=== PATIENT | female | born 1970 | race Caucasian/White ===

== ENCOUNTER 2021-08-14 16:08 | Outpatient (CLI) | payer OTHER | END 2021-08-14 23:00 | disposition home or self-care (01) | LOC: EDBD 16:08 → LAB 16:08 | PROVIDERS: ATTEND Obstetrics & Gynecology | DX: U07.1 COVID-19 (principal) ==

== ENCOUNTER 2021-08-15 11:42 | Outpatient (CLI) | payer OTHER | END 2021-08-15 11:46 | disposition home or self-care (01) | LOC: LAB 11:42 | PROVIDERS: ATTEND Obstetrics & Gynecology | DX: U07.1 COVID-19 (principal); Z03.818 Encounter for observation for suspected exposure to other biological agents ruled out ==

== ENCOUNTER 2021-12-03 08:00 | Outpatient (CLI) | payer OTHER | END 2021-12-03 08:05 | disposition home or self-care (01) | LOC: PPH VACUNA 08:00 | PROVIDERS: ATTEND Emergency Medicine Pediatric Emergency Medicine | DX: Z23 Encounter for immunization (principal) ==

== ENCOUNTER 2021-12-03 15:15 | Outpatient (CLI) | payer OTHER | END 2021-12-03 15:20 | disposition home or self-care (01) | LOC: PPH VACUNA 15:15 | PROVIDERS: ATTEND Emergency Medicine Pediatric Emergency Medicine | DX: Z23 Encounter for immunization (principal) ==

== ENCOUNTER 2021-12-30 14:30 | Outpatient (CLI) | payer OTHER | END 2021-12-30 14:31 | disposition home or self-care (01) | LOC: LAB 14:30 | DX: J06.9 Acute upper respiratory infection, unspecified (principal); T50.Z95A Adverse effect of other vaccines and biological substances, initial encounter ==

== ENCOUNTER 2022-03-11 14:20 | Outpatient (CLI) | payer OTHER | END 2022-03-11 14:24 | disposition home or self-care (01) | LOC: LAB 14:20 | DX: J11.1 Influenza due to unidentified influenza virus with other respiratory manifestations (principal); Z20.828 Contact with and (suspected) exposure to other viral communicable diseases; R50.9 Fever, unspecified; R05.9 Cough, unspecified ==

== ENCOUNTER 2023-01-07 16:14 | Emergency (ER) | payer OTHER ==
[~2023-01-07] VITALS: Ht 157.5 cm; Wt 137.0 kg
[2023-01-07] MEDS ORDERED: CARDIZEM120 MG PO (20:30)
[2023-01-07] MEDS ORDERED: ATENOLOL25 MG PO (20:31)
[2023-01-07] MEDS ORDERED: DIHYDROCODEIN-1 EACH PO (20:33)
[2023-01-07] MEDS ORDERED: NORFLEX100MG PO (20:44)
[2023-01-07] MEDS ORDERED: DICLOFENAC SODI75 MG PO (20:44)
== END 2023-01-07 21:02 | disposition home or self-care (01) ==
LOC: ER → EDBD 16:14 → ER 16:14
DX: M79.651 Pain in right thigh (principal); Z88.0 Allergy status to penicillin; Z87.09 Personal history of other diseases of the respiratory system; I10 Essential (primary) hypertension

== ENCOUNTER 2023-02-09 08:13 | Emergency (ER) | payer OTHER ==
[~2023-02-09] VITALS: Ht 157.5 cm; Wt 134.3 kg
[~2023-02-09 08:13] MED LIST: ATENOLOL25 MG PO; CARDIZEM120 MG PO; DICLOFENAC SODI75 MG PO; DIHYDROCODEIN-1 EACH PO; NORFLEX100MG PO
[2023-02-09 09:45] LABS: HEMOGLOBIN 13.4 g/dL (12.0-15.00); MEAN CELL VOLUME 87.1 fL (80.00-100.00); MEAN CORPUSCULAR HEMOGLOBIN 28.5 pg (27.00-32.0); MEAN CORPUSCULAR HGB CONC 32.8 g/dl (32.0-36.0); PLATELET COUNT 256 K/uL (150-450); RED BLOOD COUNT 4.71 M/uL (4.00-6.00); RED CELL DISTRIBUTION WIDTH 13.6 % (11.5-14.5)
[2023-02-09] MEDS ORDERED: ZITHROMAX200 MG PO (10:27)
[2023-02-09] MEDS ORDERED: FLONASE ALLERG9.9 ML NASAL (10:27)
== END 2023-02-09 11:34 | disposition home or self-care (01) ==
LOC: ER 08:13
PROVIDERS: General Practice
DX: J02.9 Acute pharyngitis, unspecified (principal); Z20.822 Contact with and (suspected) exposure to COVID-19; I10 Essential (primary) hypertension; Z88.0 Allergy status to penicillin; Z91.013 Allergy to seafood

== ENCOUNTER → 2023-02-09 11:44 | Outpatient (CLI) | payer OTHER ==
[~2023-02-09 11:44] MED LIST changes: +FLONASE ALLERG9.9 ML NASAL; +ZITHROMAX200 MG PO
[2023-02-09 12:30] LABS: HEMATOCRIT 43.2 % (36.0-45.00); HEMOGLOBIN 14.1 g/dL (12.0-15.00); MEAN CELL VOLUME 86.9 fL (80.00-100.00); MEAN CORPUSCULAR HEMOGLOBIN 28.5 pg (27.00-32.0); MEAN CORPUSCULAR HGB CONC 32.7 g/dl (32.0-36.0); PLATELET COUNT 260 K/uL (150-450); RED BLOOD COUNT 4.97 M/uL (4.00-6.00); RED CELL DISTRIBUTION WIDTH 13.7 % (11.5-14.5)
[2023-02-09 13:10] LABS: ALBUMIN 3.2 gm/dL (3.4-5.0); BILIRUBIN TOTAL 0.96 mg/dL (0.3-1.2); CALCIUM 8.5 mg/dL (8.5-10.1); CHOL HDL RATIO 3.5 (0-5.0); CREATININE SERUM 0.68 mg/dL (0.55-1.02); GFR 90.51; GLOBULINA 3.8 G/DL (2.4-3.5); POTASSIUM 3.95 mEq/L (3.5-5.1)
== END | disposition home or self-care (01) ==
LOC: LAB 11:44
PROVIDERS: ATTEND General Practice
DX: I11.9 Hypertensive heart disease without heart failure (principal); Z13.220 Encounter for screening for lipoid disorders; A49.3 Mycoplasma infection, unspecified site

== ENCOUNTER → 2023-05-05 07:46 | Outpatient (CLI) | payer OTHER ==
[2023-05-05 08:23] LABS: PH,URINE 5.5 (5.0-8.0); URINE APPEARANCE Clear; URINE BILIRRUBIN Negative (NEGATIVE); URINE BLOOD Trace; URINE COLOR Yellow; URINE GLUCOSE Negative (NEGATIVE); URINE LEUKOCYTE Negative; URINE NITRATE Negative; URINE PROTEIN Negative (NEGATIVE)
[2023-05-05 08:25] LABS: HEMATOCRIT 40.5 % (36.0-45.00); HEMOGLOBIN 13.3 g/dL (12.0-15.00); MEAN CELL VOLUME 88.7 fL (80.00-100.00); MEAN CORPUSCULAR HEMOGLOBIN 29.1 pg (27.00-32.0); MEAN CORPUSCULAR HGB CONC 32.8 g/dl (32.0-36.0); PLATELET COUNT 269 K/uL (150-450); RED BLOOD COUNT 4.57 M/uL (4.00-6.00)
[2023-05-05 08:27] LABS: URINE BACTERIA 438.4 uL (0.0-1933); URINE EPITHELIAL CELLS 33.3 uL (0.0-38.8); URINE WBC 12.3 uL (0.0-23.2)
[2023-05-05 08:33] LABS: ERYTHROCYTE SEDIMENTATION RATE 62 mm/hr
[2023-05-05 09:13] LABS: ALBUMIN 3.3 gm/dL (3.4-5.0); BILIRUBIN TOTAL 0.95 mg/dL (0.3-1.2); CALCIUM 8.6 mg/dL (8.5-10.1); CREATININE SERUM 0.66 mg/dL (0.55-1.02); FREE TRIODOTIRONINE 2.42 pg/ml (2.18-3.98); GFR 93.68; GLOBULINA 3.2 G/DL (2.4-3.5); POTASSIUM 4.38 mEq/L (3.5-5.1); T4 TOTAL 9.14 UG/DL (4.8-13.9); TOTAL PROTEIN 6.5 gm/dL (6.4-8.2); TSH 2.46 uIU/mL (0.358-3.74)
[2023-05-05 09:15] LABS: C-REACTIVE PROTEIN 3.17 MG/DL (0.00-0.29)
[2023-05-05 15:37] LABS: ob POSITIVE (NEGATIVE)
== END | disposition home or self-care (01) ==
LOC: LAB 07:46
PROVIDERS: ATTEND Internal Medicine
DX: I11.9 Hypertensive heart disease without heart failure (principal); J45.909 Unspecified asthma, uncomplicated; Z13.220 Encounter for screening for lipoid disorders; Z13.29 Encounter for screening for other suspected endocrine disorder; E55.9 Vitamin D deficiency, unspecified; Z12.11 Encounter for screening for malignant neoplasm of colon

== ENCOUNTER 2023-05-13 17:21 | Outpatient (CLI) | payer OTHER ==
[2023-05-13 21:22] LABS: HEMATOCRIT 40.5 % (36.0-45.00); HEMOGLOBIN 13.3 g/dL (12.0-15.00); MEAN CELL VOLUME 87.7 fL (80.00-100.00); MEAN CORPUSCULAR HEMOGLOBIN 28.9 pg (27.00-32.0); MEAN CORPUSCULAR HGB CONC 32.9 g/dl (32.0-36.0); PLATELET COUNT 277 K/uL (150-450); RED BLOOD COUNT 4.61 M/uL (4.00-6.00); RED CELL DISTRIBUTION WIDTH 14.1 % (11.5-14.5)
== END 2023-05-13 23:00 | disposition home or self-care (01) ==
LOC: LAB 17:21
DX: D64.9 Anemia, unspecified (principal)

== ENCOUNTER 2023-05-25 17:32 | Outpatient (CLI) | payer OTHER ==
[2023-05-25 21:09] LABS: MYCOPLASMA PNEUMONIAE IGM NON REACTIVE (NO REACTIVE)
== END 2023-05-25 17:54 | disposition home or self-care (01) ==
LOC: LAB 17:32
DX: J06.9 Acute upper respiratory infection, unspecified (principal); Z03.818 Encounter for observation for suspected exposure to other biological agents ruled out

== ENCOUNTER 2024-01-07 04:00 | Outpatient (CLI) | payer OTHER | END 2024-01-07 04:15 | disposition home or self-care (01) | LOC: PPH VACUNA 04:00 | PROVIDERS: ATTEND Emergency Medicine Pediatric Emergency Medicine | DX: Z23 Encounter for immunization (principal) ==

== ENCOUNTER 2024-04-13 13:45 | Outpatient (CLI) | payer OTHER ==
[2024-04-13 14:14] LABS: HEMATOCRIT 41.3 % (36.0-45.00); HEMOGLOBIN 13.3 g/dL (12.0-15.00); MEAN CELL VOLUME 88.8 fL (80.00-100.00); MEAN CORPUSCULAR HEMOGLOBIN 28.6 pg (27.00-32.0); MEAN CORPUSCULAR HGB CONC 32.2 g/dl (32.0-36.0); PLATELET COUNT 275 K/uL (150-450); RED BLOOD COUNT 4.65 M/uL (4.00-6.00)
[2024-04-13 14:47] LABS: MYCOPLASMA PNEUMONIAE IGM NON REACTIVE (NO REACTIVE)
== END 2024-04-13 13:46 | disposition home or self-care (01) ==
LOC: LAB 13:45
PROVIDERS: ATTEND Internal Medicine
DX: J11.1 Influenza due to unidentified influenza virus with other respiratory manifestations (principal); J06.9 Acute upper respiratory infection, unspecified; U07.1 COVID-19

== ENCOUNTER → 2024-05-04 08:05 | Outpatient (CLI) | payer OTHER ==
[2024-05-04 08:42] LABS: PH,URINE 5.5 (5.0-8.0); URINE APPEARANCE Clear; URINE BILIRRUBIN Negative (NEGATIVE); URINE BLOOD Negative; URINE COLOR Yellow; URINE GLUCOSE Negative (NEGATIVE); URINE KETONE Negative (NEGATIVE); URINE LEUKOCYTE Negative; URINE NITRATE Negative; URINE PROTEIN Negative (NEGATIVE); URINE UROBILINOGEN 0.2 E.U./dl
[2024-05-04 08:42] LABS: HEMATOCRIT 40.7 % (36.0-45.00); HEMOGLOBIN 13.2 g/dL (12.0-15.00); MEAN CELL VOLUME 88.2 fL (80.00-100.00); MEAN CORPUSCULAR HEMOGLOBIN 28.6 pg (27.00-32.0); MEAN CORPUSCULAR HGB CONC 32.5 g/dl (32.0-36.0); PLATELET COUNT 258 K/uL (150-450); RED BLOOD COUNT 4.62 M/uL (4.00-6.00)
[2024-05-04 08:45] LABS: URINE BACTERIA 303.3 uL (0.0-1933); URINE EPITHELIAL CELLS 21.8 uL (0.0-38.8); URINE WBC 8.2 uL (0.0-23.2)
[2024-05-04 08:46] LABS: ERYTHROCYTE SEDIMENTATION RATE 93 mm/hr
[2024-05-04 09:28] LABS: URINE RBC 0.2 uL (0.0-20.8)
[2024-05-04 10:02] LABS: ALBUMIN 3.1 gm/dL (3.4-5.0); BILIRUBIN TOTAL 0.81 mg/dL (0.3-1.2); CALCIUM 8.4 mg/dL (8.5-10.1); CHOL HDL RATIO 3.1 (0-5.0); CREATININE SERUM 0.58 mg/dL (0.55-1.02); FREE TRIODOTIRONINE 2.36 pg/ml (2.18-3.98); GFR 108.33; GLOBULINA 3.4 G/DL (2.4-3.5); POTASSIUM 4.5 mEq/L (3.5-5.1); T4 TOTAL 8.42 UG/DL (4.8-13.9); TOTAL PROTEIN 6.5 gm/dL (6.4-8.2); TSH 2.12 uIU/mL (0.358-3.74)
[2024-05-04 10:06] LABS: C-REACTIVE PROTEIN 3.25 MG/DL (0.00-0.29)
== END | disposition home or self-care (01) ==
LOC: LAB 08:05
PROVIDERS: ATTEND Internal Medicine
DX: I11.9 Hypertensive heart disease without heart failure (principal); Z13.220 Encounter for screening for lipoid disorders; E55.9 Vitamin D deficiency, unspecified; Z13.1 Encounter for screening for diabetes mellitus; Z12.10 Encounter for screening for malignant neoplasm of intestinal tract, unspecified; Z13.29 Encounter for screening for other suspected endocrine disorder

== ENCOUNTER → 2024-07-19 14:05 | Outpatient (CLI) | payer OTHER ==
[2024-07-19 15:22] LABS: HEMATOCRIT 38.8 % (36.0-45.00); MEAN CELL VOLUME 86.3 fL (80.00-100.00); MEAN CORPUSCULAR HEMOGLOBIN 28.8 pg (27.00-32.0); MEAN CORPUSCULAR HGB CONC 33.4 g/dl (32.0-36.0); PLATELET COUNT 276 K/uL (150-450); RED BLOOD COUNT 4.49 M/uL (4.00-6.00); RED CELL DISTRIBUTION WIDTH 14.4 % (11.5-14.5)
[2024-07-19 15:35] LABS: ERYTHROCYTE SEDIMENTATION RATE 106 mm/hr
[2024-07-19 15:52] LABS: ALBUMIN 3.1 gm/dL (3.4-5.0); BILIRUBIN TOTAL 0.58 mg/dL (0.3-1.2); CALCIUM 8.3 mg/dL (8.5-10.1); CHOL HDL RATIO 3.1 (0-5.0); CREATININE SERUM 0.79 mg/dL (0.55-1.02); GFR 75.56; GLOBULINA 3.5 G/DL (2.4-3.5); POTASSIUM 4.29 mEq/L (3.5-5.1); TOTAL PROTEIN 6.6 gm/dL (6.4-8.2)
[2024-07-19 15:57] LABS: C-REACTIVE PROTEIN 3.6 MG/DL (0.00-0.29)
[2024-07-19 16:01] LABS: FREE TRIODOTIRONINE 2.19 pg/ml (2.18-3.98); T4 TOTAL 7.7 UG/DL (4.8-13.9); TSH 1.66 uIU/mL (0.358-3.74)
[2024-07-19 19:27] LABS: PH,URINE 5.5 (5.0-8.0); URINE APPEARANCE Clear; URINE BILIRRUBIN Negative (NEGATIVE); URINE BLOOD Negative; URINE COLOR Yellow; URINE GLUCOSE Negative (NEGATIVE); URINE KETONE Negative (NEGATIVE); URINE LEUKOCYTE Negative; URINE NITRATE Negative; URINE PROTEIN Negative (NEGATIVE)
[2024-07-19 19:30] LABS: URINE BACTERIA 884.7 uL (0.0-1933); URINE EPITHELIAL CELLS 35.6 uL (0.0-38.8); URINE WBC 10.2 uL (0.0-23.2)
[2024-07-19 19:31] LABS: URINE RBC 1.9 uL (0.0-20.8)
== END | disposition home or self-care (01) ==
LOC: LAB 14:05
PROVIDERS: ATTEND Internal Medicine
DX: I11.9 Hypertensive heart disease without heart failure (principal); Z13.29 Encounter for screening for other suspected endocrine disorder; Z12.10 Encounter for screening for malignant neoplasm of intestinal tract, unspecified; Z13.1 Encounter for screening for diabetes mellitus; E55.9 Vitamin D deficiency, unspecified; Z13.220 Encounter for screening for lipoid disorders

== ENCOUNTER 2024-10-10 14:14 | Outpatient (CLI) | payer OTHER ==
[2024-10-10 14:54] LABS: BASO % 0.4 % (0.1-1.2); EOS # 0.17 (0.04-0.54); EOS % 2.1 % (0.7-7.0); LYMPH # 1.36 (1.18-3.74); LYMPH % 16.5 % (19.3-53.1); MEAN PLATELET VOLUME 10.00 fl (9.4-12.4); MONO # 0.58 (0.24-0.82); MONO % 7.0 % (4.7-12.5); NEUT # 6.06 (1.56-6.13); NEUT % 73.6 % (34.0-71.1); RED CELL DISTRIBUTION WIDTH 13.4 % (11.6-14.4)
[2024-10-10 15:15] LABS: COVID-19 AG POSITIVE (NEGATIVE)
[2024-10-10 16:02] LABS: MYCOPLASMA PNEUMONIAE IGM NON REACTIVE (NO REACTIVE)
[2024-10-10 16:07] LABS: ALT/SGPT 44.0 U/L (12-78); AST/SGOT 24.0 U/L (15-37); BILIRUBIN TOTAL 0.8 mg/dL (0.3-1.2); BUN CREA RATIO 18.0 (7.0-25.0); CHOL HDL RATIO 3.2 (0-5.0); CREATININE SERUM 0.61 mg/dL (0.55-1.02); FREE TRIODOTIRONINE 2.4 pg/ml (2.18-3.98); GFR 101.83; GLOBULINA 3.6 G/DL (2.4-3.5); GLUCOSE FASTING 86.0 mg/dL (65-100); HDL 54.0 mg/dl (40-60); LDL 98.0 mg/dl (0-130); OSMOLALITY SERUM 278.0 MOSM/KG (275-295); T4 FREE 1.13 NG/ML (0.76-1.46); TSH 1.55 uIU/mL (0.358-3.74); VLDL 18.0 (0-39)
[2024-10-10 16:32] LABS: ERYTHROCYTE SEDIMENTATION RATE 93 mm/hr (0-30)
== END 2024-10-10 14:21 | disposition home or self-care (01) ==
LOC: LAB 14:14
PROVIDERS: ATTEND Internal Medicine
DX: I11.9 Hypertensive heart disease without heart failure (principal); Z13.220 Encounter for screening for lipoid disorders; E55.9 Vitamin D deficiency, unspecified; Z13.1 Encounter for screening for diabetes mellitus; Z12.10 Encounter for screening for malignant neoplasm of intestinal tract, unspecified; Z13.29 Encounter for screening for other suspected endocrine disorder; Z03.818 Encounter for observation for suspected exposure to other biological agents ruled out; J06.9 Acute upper respiratory infection, unspecified

== ENCOUNTER 2025-02-23 10:53 | Outpatient (CLI) | payer OTHER ==
[2025-02-23 12:20] LABS: BASO % 0.4 % (0.1-1.2); EOS # 0.14 (0.04-0.54); EOS % 1.7 % (0.7-7.0); LYMPH # 1.44 (1.18-3.74); LYMPH % 17.5 % (19.3-53.1); MEAN PLATELET VOLUME 11.40 fl (9.4-12.4); MONO # 0.50 (0.24-0.82); MONO % 6.1 % (4.7-12.5); NEUT # 6.11 (1.56-6.13); NEUT % 73.9 % (34.0-71.1); RED CELL DISTRIBUTION WIDTH 13.2 % (11.6-14.4)
[2025-02-23 13:16] LABS: ALT/SGPT 34.0 U/L (12-78); AST/SGOT 21.0 U/L (15-37); BILIRUBIN TOTAL 0.86 mg/dL (0.3-1.2); BUN CREA RATIO 22.0 (7.0-25.0); CHOL HDL RATIO 3.3 (0-5.0); CREATININE SERUM 0.58 mg/dL (0.55-1.02); GFR 107.93; GLOBULINA 3.6 G/DL (2.4-3.5); GLUCOSE FASTING 90.0 mg/dL (65-100); HDL 53.0 mg/dl (40-60); LDL 105.0 mg/dl (0-130); OSMOLALITY SERUM 277.0 MOSM/KG (275-295); T4 TOTAL 8.86 UG/DL (4.8-13.9); TSH 1.78 uIU/mL (0.358-3.74); VLDL 15.0 (0-39)
[2025-02-23 15:01] LABS: T3 TOTAL 0.836 ng/ml (0.846-2.02); VITAMIN D3 25 HYDROXY 23.81 ng/ml (30-120)
[2025-02-23 21:03] LABS: URINE APPEARANCE Clear; URINE BILIRRUBIN Negative (NEGATIVE); URINE BLOOD Negative; URINE COLOR Yellow; URINE GLUCOSE Negative (NEGATIVE); URINE KETONE Negative (NEGATIVE); URINE LEUKOCYTE Negative; URINE NITRATE Negative; URINE PROTEIN Negative (NEGATIVE); URINE UROBILINOGEN 1.0 E.U./dl
[2025-02-23 21:06] LABS: URINE BACTERIA 98.3 uL (0.0-1933); URINE EPITHELIAL CELLS 4.8 uL (0.0-38.8); URINE RBC 14.3 uL (0.0-20.8); URINE WBC 2.1 uL (0.0-23.2)
[2025-02-23 21:07] LABS: URINE CAST 0.00 uL (0.0-1.40)
== END 2025-02-23 10:59 | disposition home or self-care (01) ==
LOC: LAB 10:53
PROVIDERS: ATTEND Internal Medicine
DX: I11.9 Hypertensive heart disease without heart failure (principal); J45.909 Unspecified asthma, uncomplicated; R73.9 Hyperglycemia, unspecified; Z13.220 Encounter for screening for lipoid disorders; Z13.29 Encounter for screening for other suspected endocrine disorder; D64.9 Anemia, unspecified; E55.9 Vitamin D deficiency, unspecified